=== PATIENT | female | born 1990 | race Two or more races ===

== ENCOUNTER → 2019-11-01 | Emergency (ER) | payer MEDICAID, OTHER ==
[~2019-11-01] VITALS: Ht 165.1 cm; Wt 72.6 kg
[~2019-11-01] MED LIST: ACETAMINOPHEN 325 MG TAB PO ONE
[2019-11-01 20:57] VITALS: BP 129/84
== END | disposition home or self-care (01) ==
LOC: ER 19:33
DX: M54.6 Pain in thoracic spine (principal); M25.561 Pain in right knee
CPT/HCPCS: 71045; 72040; 72070